=== PATIENT | male | born 1970 | race Caucasian/White ===

== ENCOUNTER 2018-11-10 17:53 | Emergency (ER) | payer OTHER ==
--- NOTE | 2018-11-10 17:59 | ED Physician Documentation ---
History of Present Illness - Stated complaint Stated Complaint: CP - Chief complaint Chief Complaint: Cardiac - History obtained from History obtained from: Patient - Additonal information Additional information: Patient is a 48-year-old male with history of anxiety and previous arrhythmia presenting with left-sided chest discomfort that does not radiate, but is pleuritic in nature that began at approximately 3:30 PM today. Patient denies any prodromal symptoms. Patient denies associated lightheadedness, syncope, nausea, vomiting, paresthesias, leg swelling or pain. Patient does feel that symptoms are similar to previous anxiety attacks. Patient has never had a cardiac work-up except for an echo performed for his supposed arrhythmia several years ago.Patient does not take any medications for his arrhythmia as he does not tolerate metoprolol well.Improving or worsening factors noted to his symptoms. Review of Systems Cardiac: reports: Chest pain / pressure Respiratory: reports: Dyspnea PD PAST MEDICAL HISTORY - Past Medical History Cardiovascular: Arrhythmia GI: Crohn's disease Psych: Anxiety - Past Surgical History Past Surgical History: Yes General: Bowel surgery - Present Medications Home Medications: Ambulatory Orders Medication Instructions Recorded Confirmed No Known Home Medications 11/10/18 11/10/18 - Allergies Allergies/Adverse Reactions: Allergies Allergy/AdvReac Type Severity Reaction Status Date / Time latex Allergy Rash Verified 11/10/18 17:58 PD ED PE NORMAL - Vitals Vital signs reviewed: Yes - General General: Alert and oriented X 3, No acute distress (slightly anxious), Well developed/nourished - HEENT HEENT: Atraumatic - Cardiac Cardiac: RRR, No murmur - Respiratory Respiratory: No respiratory distress, Clear bilaterally - Abdomen Abdomen: Soft, Non tender, Non distended - Derm Derm: Normal color, Warm and dry, No rash - Extremities Extremities: No deformity, No tenderness to palpate - Neuro Neuro: Alert and oriented X 3, No motor deficit, No sensory deficit - Psych Psych: Normal mood (Slightly anxious), Normal affect Results - Vitals Vitals: Vital Signs - 24 hr 11/10/18 11/10/18 11/10/18 17:55 18:11 19:02 Temperature 36.3 C L Heart Rate 79 71 56 L Respiratory 14 18 16 Rate Blood Pressure 152/103 H 127/92 H 126/81 H O2 Saturation 100 99 99 11/10/18 20:12 Temperature Heart Rate 76 Respiratory 16 Rate Blood Pressure 130/77 O2 Saturation 97 Oxygen O2 Source Room air - EKG (time done) 1800 Rate: Rate (enter#) (78) Rhythm: NSR - Labs Labs: Laboratory Tests 11/10/18 11/10/18 11/10/18 18:25 18:25 18:25 WBC 5.2 RBC 4.81 Hgb 14.7 Hct 43.5 MCV 90.4 MCH 30.6 MCHC 33.8 RDW 12.6 Plt Count 211 MPV 8.2 Neut # (Auto) 2.5 Lymph # (Auto) 1.9 [place] # (Auto) 0.5 Eos # (Auto) 0.2 Baso # (Auto) 0.0 Absolute Nucleated RBC 0.00 Nucleated RBC % 0.1 Sodium 140 Potassium 3.5 Chloride 102 Carbon Dioxide 29 Anion Gap 9.0 BUN 15 Creatinine 0.9 Estimated GFR (MDRD) 90 Glucose 113 H Calcium 9.1 Total Bilirubin 0.4 AST 26 ALT 16 Alkaline Phosphatase 76 Troponin I < 0.04 Total Protein 6.9 Albumin 4.0 Globulin 2.9 Albumin/Globulin Ratio 1.4 Lipase 49 TSH 11/10/18 11/10/18 18:25 19:30 WBC RBC Hgb Hct MCV MCH MCHC RDW Plt Count MPV Neut # (Auto) Lymph # (Auto) [place] # (Auto) Eos # (Auto) Baso # (Auto) Absolute Nucleated RBC Nucleated RBC % Sodium Potassium Chloride Carbon Dioxide Anion Gap BUN Creatinine Estimated GFR (MDRD) Glucose Calcium Total Bilirubin AST ALT Alkaline Phosphatase Troponin I < 0.04 Total Protein Albumin Globulin Albumin/Globulin Ratio Lipase TSH 1.99 PD MEDICAL DECISION MAKING - ED course Complexity details: reviewed old records, reviewed results, re-evaluated patient, considered differential, d/w patient, d/w family ED course: Patient has history of arrhythmia, but denies palpitations and do not find evidence of abnormal beats or arrhythmia on EKG today. Additionally, no signs of ischemia on EKG. Do have high suspicion for anxiety, esophageal spasm, GERD as likely cause of today's complaints as compared to ACS, myocardial infarction, unstable angina, PE, pneumonia, but will obtain further work-up. Patient given aspirin and fentanyl which improved symptoms. Screening lab work including troponin x2 returned unremarkable. As plan to obtain CTA chest to further rule out PE, did not obtain chest x-ray. CTA chest returned unremarkable for PE or other concerns. At this time, feel that patient is safe to discharge home, but advised on close primary care follow-up and need for referral to cardiology for likely further cardiac evaluation such as stress test. Also described strict return precautions and other supportive cares. Patient voiced understanding and is comfortable with this discharge plan. Departure - Departure Disposition: Home, Self Care Clinical Impression: Chest pain Qualifiers: Chest pain type: chest pain on breathing Qualified Code(s): R07.1 - Chest pain on breathing; R07.81 - Pleurodynia Condition: Good Instructions: ED Chest Pain NonCardiac Follow-Up: your,doctor [Other] - Within 3 Days Comments: Please continue all home medications as previously instructed. Please follow-up with your primary care physician next 2 to 3 days to discuss your visit and obtain referral for further evaluation with cardiology to likely include stress test. Return to ED sooner if experience worsening symptoms or other concerns.
[2018-11-10] MEDS ORDERED: fentaNYL 100 MCG/2 ML VIAL IVP STA (18:20)
[2018-11-10] MEDS ORDERED: SODIUM CHLORIDE 0.9% 1,000 ML IV ONE (18:20)
[2018-11-10] MEDS ORDERED: ASPIRIN CHEW 81 MG TABLET PO STA (18:20)
[2018-11-10 18:34] LABS: BASOPHILS % (AUTO) 0.2 %; EOSINOPHILS # (AUTO) 0.2 10^3/uL (0.0-0.7); EOSINOPHILS % (AUTO) 4.3 %; HGB - HEMOGLOBIN 14.7 g/dL (14.0-18.0); LYMPHOCYTES # (AUTO) 1.9 10^3/uL (1.5-3.5); LYMPHOCYTES % (AUTO) 37.1 %; MEAN CORPUSCULAR HEMOGLOBIN 30.6 pg (27.0-31.0); MEAN CORPUSCULAR HGB CONC 33.8 g/dL (32.0-36.0); MEAN CORPUSCULAR VOLUME 90.4 fL (80.0-94.0); MEAN PLATELET VOLUME 8.2 fL (7.4-11.4); MONOCYTES # (AUTO) 0.5 10^3/uL (0.0-1.0); MONOCYTES % (AUTO) 10.3 %; NEUTROPHILS # (AUTO) 2.5 10^3/uL (1.5-6.6); NEUTROPHILS % (AUTO) 48.1 %; PLT - PLATELET COUNT 211 10^3/uL (130-450); RED BLOOD COUNT 4.81 10^6/uL (4.70-6.10); RED CELL DISTRIBUTION WIDTH 12.6 % (12.0-15.0); WHITE BLOOD COUNT 5.2 x10^3/uL (4.8-10.8)
[2018-11-10 18:54] LABS: ALBUMIN/GLOBULIN RATIO 1.4 (1.0-2.2); BILIRUBIN,TOTAL 0.4 mg/dL (0.2-1.0); CALCIUM 9.1 mg/dL (8.5-10.3); CREATININE 0.9 mg/dL (0.6-1.2); TOTAL PROTEIN 6.9 g/dL (6.7-8.2)
[2018-11-10] MEDS ORDERED: IOVERSOL 320 100 ML VIAL IVP ONE ×2 (19:47→20:11)
[2018-11-10 20:12] VITALS: BP 130/77
--- NOTE | 2018-11-10 20:23 | CT Report ---
Reason: Pleuritic chest pain Procedure Date: 11/10/2018 Accession Number: [id number] / [id number] Procedure: CT - ANGIO CHEST W/WO CPT Code: FULL RESULT: EXAM: CT ANGIOGRAM CHEST EXAM DATE: 11/10/2018 08:09 PM. CLINICAL HISTORY: Pleuritic chest pain. COMPARISON: None. TECHNIQUE: Routine helical imaging was performed through the chest in the pulmonary arterial phase. IV Contrast: 80 ML OPTIRAY 320. Reconstructions: Coronal 3-D MIP reconstructions.Sagittal and coronal. In accordance with CT protocol optimization, one or more of the following dose reduction techniques were utilized for this exam: automated exposure control, adjustment of mA and/or KV based on patient size, or use of iterative reconstructive technique. FINDINGS: Pulmonary Arteries: Diagnostic quality: Adequate through the segmental arteries. No evidence for acute or chronic pulmonary emboli. Lungs/Pleura: No consolidation, nodules, or edema. No effusions or pneumothorax. Mediastinum: No cardiac enlargement or adenopathy. Thoracic Aorta: Unremarkable. Upper Abdomen: Unremarkable. Other: None. IMPRESSION: No pulmonary emboli. RAD[facility]
== END 2018-11-10 20:37 | disposition home or self-care (01) ==
LOC: ED 17:53
DX: R07.1 Chest pain on breathing (principal); R07.81 Pleurodynia
CPT/HCPCS: 36415; 71275; 83690; 84484; 93005; 96361; 96374; 99283; 99284; A9270; Q9967; 80053; 84443; 85025